=== PATIENT | female | born 1980 ===

== ENCOUNTER 2017-02-18 17:37 | Emergency (ER) | payer OTHER ==
--- NOTE | 2017-02-18 18:54 | RAD ---
KNEE- LEFT 4 OR MORE VIEWS HISTORY: Anterior knee pain for 2 weeks without injury. COMPARISONS: None. FINDINGS: 4 views of the left knee demonstrate intact osseous structures. The knee joint spaces are relatively well-maintained. No lytic or blastic lesions are seen. There is evidence suggesting a suprapatellar joint effusion. IMPRESSION: 1. A knee joint effusion. 2. Otherwise negative views of the left knee.
[2017-02-18] MEDS ORDERED: IBUPROFEN 600 MG TABLET ONE (19:20)
== END 2017-02-18 19:25 | disposition home or self-care (01) ==
LOC: ED 17:37
DX: S83.8X2A Sprain of other specified parts of left knee, initial encounter (principal); M25.462 Effusion, left knee; X50.3XXA Overexertion from repetitive movements, initial encounter; Y93.01 Activity, walking, marching and hiking; Y92.831 Amusement park as the place of occurrence of the external cause
CPT/HCPCS: 85379; 73564; 99283 ×2; 36415; A9270